=== PATIENT | male | born 1950 | race Caucasian/White ===

== ENCOUNTER → 2018-09-05 | Day surgery (SDC) | payer MEDICARE ==
[2018-08-29 11:33] LABS: BASOPHILS % 0.5 % (0.0-1.0); EOSINOPHILS # (AUTO) 0.1 (0.0-0.4); EOSINOPHILS % 1.2 % (0.0-6.0); HEMOGLOBIN 14.5 g/dL (14.0-18.0); LYMPHOCYTES # (AUTO) 1.3 (1.0-3.2); LYMPHOCYTES % 29.7 % (18.0-39.1); MEAN CORPUSCULAR HEMOGLOBIN 32.4 pg (28-32); MEAN CORPUSCULAR VOLUME 98.4 fL (81-99); MONOCYTES # (AUTO) 0.5 (0.2-0.8); MONOCYTES % 10.8 % (4.4-11.3); NEUTROPHILS # (AUTO) 2.5 (2.1-6.9); NEUTROPHILS % 57.3 % (38.7-80.0); PLATELET COUNT 206 x10e3/uL (140-360); RED BLOOD COUNT 4.47 x10e6/uL (4.3-5.7); RED CELL DISTRIBUTION WIDTH 12.4 % (11.7-14.4)
[~2018-09-05] MED LIST: BYSTOLIC10 MG PO; CELEBREX400 MG PO; EPHEDRINE SULFATE INJ 50 MG/10 ML SYR ONE; FENTANYL CITRATE/PF 100MCG/2 ML INJ ONE; GABAPENTIN400 MG PO; HYDROCHLOROTH12.5 MG PO; HYOSCYAMINE SULFATE 0.5 MG/ML INJ ONE; LANSOPRAZOLE15 MG PO; LIDOCAINE HCL 2% LOCAL INJ 5 ML SDV VIAL INJ ONE; METOPROLOL SUCC50 MG PO; NIACIN500 M2 PO; PANTOPRAZOLE SO40 MG PO; PROPOFOL IV EMULSION 10 MG/ML 50 ML VIAL ONE; SINGULAIR10 MG PO; SYNTHROID25 MCG PO; VASOTEC10 MG PO; XARELTO20 MG PO
--- OUTSIDE RECORDS SUMMARY | 2018-09-05 07:36 | XMS REPORT ---
Author Author [facility] Address Unknown Phone Unavailable Care Team Providers Care [place] Driver Name Role Phone CAMDEN BARBOUR Unavailable Unavailable Problems This patient has no known problems. Allergies, Adverse Reactions, Alerts This patient has no known allergies or adverse reactions. Medications This patient has no known medications. Results Test Description Test Time Test Comments Text Results Atomic Results Result Comments MRI SPINE LUMBAR WO [place] [address] Patient Name: MELINDA DE LA CRUZ MR #: [id number] : 1950 Age/Sex: 67/M Req #: [id number] Adm Physician: Ordered by: CAMDEN BARBOUR MD Report #: [id number] Location: MRI Room/Bed: Procedure: [id number] MRI/MRI SPINE LUMBAR WO Exam Date: 05/09/17 Exam Time: 914 REPORT STATUS: Signed Examination: MRI SPINE LUMBAR WITHOUT CONTRAST History: Low back pain radiating down the left leg. Comparison studies: None Technique: Sagittal, coronal and axial T2 , sagittal T1 and STIR; axial spin density oblique. Findings: Number of lumbar vertebral bodies: Five. Alignment: Normal lordosis. No scoliosis. Soft tissues: No T2 hyperintense inflammatory changes. Posterior paraspinal soft tissues and muscles: Mild atrophy. Lower thoracic cord: Normal in signal and morphology. The tip of the conus is at T12-L1. Cauda equina: No masses. No arachnoiditis. Vertebrae: No fractures, infection or aggressive neoplasm. A 2 cm (anterior posterior dimension) hemangioma (T1 and T2 hyperintense and STIR hypointense) of the left posterior body and pedicle of L2. Degenerative changes: L1-L2: No abnormalities. L2-L3: No abnormalities. L3-L4: Diffuse disc bulge and bilateral facet arthropathy result in mild left neural foraminal narrowing and mild canal stenosis. No right foraminal narrowing. L4-L5: Diffuse disc bulge and bilateral facet arthropathy. No foraminal stenosis. Prior decompressive laminectomies. L5-S1: Diffuse disc bulge and bilateral facet arthropathy result in moderate bilateral neural foraminal narrowing with contact of the bilateral exiting L5 nerve roots. Prior decompressive laminectomies. IMPRESSION: 1. Degenerative changes from L3-L4 through L5-S1 with mild canal stenosis at L3-L4 and moderate bilateral neural foraminal narrowing at L5-S1. 2. Prior decompressive laminectomies at L4-L5 and L5-S1. 3. No canal stenosis. Signed by: Dr. Dulce Maria Carvalho M.D. on 05/09/2017 10:17 AM Dictated By: DULCE MARIA PIKE MD [id number] Transcribed By: DANG on 05/09/17 1017 COPY TO: CAMDEN BARBOUR MD
[2018-09-05 10:15] VITALS: BP 115/71
--- NOTE | 2018-09-05 10:53 | Operative Report ---
DATE OF PROCEDURE: September 05, 2018 REFERRING PHYSICIAN: Dr. Tommy Barbour. PROCEDURE PERFORMED: Colonoscopy and polypectomy. INDICATIONS FOR COLONOSCOPY: Surveillance colonoscopy, personal history of colon polyps. MEDICATION: Patient was done under MAC. Please see anesthesiologist's note. PROCEDURE: Patient in left lateral decubitus position, a flexible fiberoptic Olympus colonoscope was inserted into the rectum with ease, advanced all the way to the cecum. Patient has colvin diverticulosis. A minute polyp was hot biopsied from the cecum. The ascending, transverse, other than for diverticular disease, grossly appeared to be within normal limits. One polyp was hot biopsied from the descending colon. Anastomosis was noted at 18 cm from the anal verge. Patient is status post colon resection for perforated diverticulitis. Two minute polyps were hot biopsied from the distal rectum. The scope was then retroflexed into the distal rectum and small internal hemorrhoids were noted, none of which was actively bleeding. The scope was then straightened out and was subsequently withdrawn. Patient tolerated the procedure well. IMPRESSIONS 1. Colvin diverticulosis. 2. Cecal polyp, hot biopsied. 3. Descending colon polyp, hot biopsied. 4. Anastomosis, intact at 18 cm from anal verge. 5. Rectal polyps, minute, x2, hot biopsied. 6. Internal hemorrhoids, none actively bleeding. PLAN: Follow up histology. Initiate high-fiber, low-fat diet. Initiate high-fiber supplement. Patient might benefit from a followup colonoscopy in 3 to 5 years. Job#: [id number] TA cc:TOMMY BARBOUR MD,
== END | disposition home or self-care (01) ==
LOC: ENDO 07:34
PROVIDERS: ATTEND Internal Medicine Gastroenterology
DX: Z12.11 Encounter for screening for malignant neoplasm of colon (principal); D12.4 Benign neoplasm of descending colon; K62.1 Rectal polyp; Z98.0 Intestinal bypass and anastomosis status; K57.30 Diverticulosis of large intestine without perforation or abscess without bleeding; K64.8 Other hemorrhoids; J44.9 Chronic obstructive pulmonary disease, unspecified; E03.9 Hypothyroidism, unspecified; I10 Essential (primary) hypertension; Z01.810 Encounter for preprocedural cardiovascular examination; Z01.812 Encounter for preprocedural laboratory examination; Z79.02 Long term (current) use of antithrombotics/antiplatelets; Z86.711 Personal history of pulmonary embolism; Z86.718 Personal history of other venous thrombosis and embolism; Z87.891 Personal history of nicotine dependence
CPT/HCPCS: 36415; 45384; 85025; 88305; 93005; J1980; J2001; 45378